=== PATIENT | male | born 1965 | race Caucasian/White ===

== ENCOUNTER 2017-01-19 01:49 | Emergency (ER) | payer OTHER ==
[~2017-01-19] VITALS: Ht 175.3 cm; Wt 127.8 kg
[2017-01-19] MEDS ORDERED: LEVAQUIN750 MG PO (03:47)
[2017-01-19] MEDS ORDERED: HYCODAN SYRUP480 ML PO (03:47)
[2017-01-19 04:03] VITALS: BP 148/89
== END 2017-01-19 04:04 | disposition home or self-care (01) ==
LOC: EME 01:49 → EXP 01:49
DX: J18.9 Pneumonia, unspecified organism (principal); Z88.6 Allergy status to analgesic agent
CPT/HCPCS: 71020; 99281; 99284